=== PATIENT | male | born 1980 | race Caucasian/White ===

== ENCOUNTER 2018-10-15 10:22 | Emergency (ER) | payer MEDICAID, OTHER ==
[~2018-10-15] VITALS: Ht 193 cm; Wt 89.0 kg
--- NOTE | 2018-10-15 10:33 | NUR ---
PT BIB [facility] AFTER PT HAD UNWITNESSED SYNCOPAL EPISODE AT [facility]. PT STATES HE FELT DIZZY/LIGHTHEADED AFTER EPISODE./ PT AOX4. GCS 15. STATES HE HAS HAD MULTIPLE EPISODES OF SAME BEFORE. PT RESTING ON GURNEY. NADN. C/O [place]. NO TRAUMA/INJURY NOTED TO HEAD. MONITORS APPLIED. EKG CMP. WARM BLANKET OFFERED.
--- NOTE | 2018-10-15 10:58 | NUR ---
PT AWARE OF NEED FOR UA. STATES UNABLE TO PROVIDE SAMPLE AT THIS TIME. URINAL LEFT AT BEDSIDE.
--- NOTE | 2018-10-15 11:08 | NUR ---
pt resting on gurney. nadn. lopez.
[2018-10-15] MEDS ORDERED: ACETAMINOPHEN 325 MG TABLET PO ONE (11:30)
[2018-10-15 11:31] LABS: BASOPHILS # (AUTO) 0.02 x10^3/uL (0-0.1); BASOPHILS % (AUTO) 0 % (0-1); EOSINOPHILS # (AUTO) 0.04 x10^3/uL (0-0.4); EOSINOPHILS % (AUTO) 1 % (1-7); LYMPHOCYTES # (AUTO) 0.76 x10^3/uL (1-3.4); LYMPHOCYTES % (AUTO) 14 % (22-44); MD NO; MEAN CORPUSCULAR HEMOGLOBIN 30.5 pg (27.5-34.5); MEAN CORPUSCULAR HGB CONC 33.1 g/dL (33.2-36.2); MEAN PLATELET VOLUME 8.1 fL (7.4-10.4); MONOCYTES % (AUTO) 7 % (2-9); NEUTROPHILS # (AUTO) 4.39 x10^3/uL (1.8-6.8); NEUTROPHILS % (AUTO) 78 % (42-75); PLATELET COUNT 195 x10^3/uL (130-400); RED BLOOD COUNT 4.26 x10^6/uL (4.38-5.82); RED CELL DISTRIBUTION WIDTH 12.7 % (9.4-14.8)
[2018-10-15] MEDS ORDERED: ACETAMINOPHEN 325 MG TABLET ONE (11:32)
[2018-10-15 11:33] LABS: ALBUMIN 3.9 g/dL (3.4-5.0); ANION GAP 7 mmol/L (5-15); CALCIUM 8.5 mg/dL (8.5-10.1); CHLORIDE 106 mmol/L (98-107)
[2018-10-15 11:38] LABS: ALANINE AMINOTRANSFERASE 19 U/L (12-78); ALKALINE PHOSPHATASE 80 U/L (45-117); BILIRUBIN,TOTAL 0.3 mg/dL (0.2-1.0); CREATININE 1.13 mg/dL (0.7-1.3); TROPONIN I < 0.015 ng/mL (0.000-0.045)
--- NOTE | 2018-10-15 11:48 | NUR ---
PT TAKEN TO CT IN STABLE CONDITION.
[2018-10-15 12:42] LABS: MICROSCOPIC NOT IND
[2018-10-15 12:44] LABS: CULTURE INDICATED? NO
--- NOTE | 2018-10-15 12:45 | NUR ---
PT CHART REVIEWED AND PLACED FOR RECHECK.
[2018-10-15 12:52] VITALS: BP 114/83
--- NOTE | 2018-10-15 12:52 | NUR ---
PT RESTING ON GURNEY. NADN. T[place].
== END 2018-10-15 13:37 | disposition home or self-care (01) ==
LOC: ED 13:29
DX: S06.9X9A Unspecified intracranial injury with loss of consciousness of unspecified duration, initial encounter (principal); R55 Syncope and collapse; Z86.718 Personal history of other venous thrombosis and embolism; Z88.1 Allergy status to other antibiotic agents; X58.XXXA Exposure to other specified factors, initial encounter; Y93.89 Activity, other specified; Y92.89 Other specified places as the place of occurrence of the external cause; Y99.8 Other external cause status
CPT/HCPCS: 36415; 70450; 80053; 81003; 84484; 85025; 93005; 99284